=== PATIENT | female | born 1970 | race Caucasian/White ===

== ENCOUNTER → 2023-05-12 15:58 | Outpatient (REF) | payer BC, SELFPAY ==
[2023-05-15 19:12] LABS: Hematocrit 41.4 % (37.0-47.0); Hemoglobin 13.3 g/dL (12.0-16.0); Mean Corp Hgb Conc. 32.1 g/dL (33.0-37.0); Mean Corpuscular Hgb 29.3 pg (27.0-31.0); Mean Corpuscular Volume 91.2 fL (81.0-99.0); Mean Platelet Volume 10.2 fL (7.4-10.4); Platelet Count 416 10^3/uL (130-400); Red Blood Cell Count 4.54 10^6/uL (4.20-5.40); Red Cell Dist. Width 13.9 % (11.5-14.5); White Blood Cell Count 5.9 10^3/uL (4.8-10.8)
[2023-05-15 19:28] LABS: ALT (SGPT) 13 U/L (0-35); AST (SGOT) 20 U/L (14-36); Albumin 4.1 g/dl (3.5-5.0); Alkaline Phosphatase 57 U/L (38-126); Blood Urea Nitrogen 10 mg/dl (7-17); Carbon Dioxide 26 mmol/L (22-30); Glucose 74 mg/dl (70-99); HDL Cholesterol 77 mg/dl; LDL Cholesterol, Calculated 103 mg/dl; Total Bilirubin 0.8 mg/dl (0.2-1.3); Total Cholesterol 195 mg/dl (50-199); Total Protein 6.9 g/dl (6.3-8.2); Triglyceride 75 mg/dl (10-149); Very Low Density Lipoprotein 15 mg/dl (0-30); eGFR > 60.00
[2023-05-15 19:40] LABS: Chloride 104 mmol/L (98-107); Potassium 3.9 mmol/L (3.5-5.1); Sodium 134 mmol/L (135-145)
[2023-05-15 20:05] LABS: TSH Reflex To Free T4 1.63 uIU/ml (0.47-4.68)
== END ==
LOC: CLAB 15:58
PROVIDERS: ATTENDING PHYSICIAN Physician Assistant Medical
DX: Z00.00 Encounter for general adult medical examination without abnormal findings (principal); Z13.220 Encounter for screening for lipoid disorders
CPT/HCPCS: 36415; 80053; 80061; 84443; 85027

== ENCOUNTER → 2023-06-30 17:46 | Outpatient (REF) | payer BC, SELFPAY ==
[2023-06-30 18:33] LABS: Sodium 137 mmol/L (135-145)
== END ==
LOC: CLAB 17:46
PROVIDERS: ATTENDING PHYSICIAN Physician Assistant Medical
DX: R89.9 Unspecified abnormal finding in specimens from other organs, systems and tissues (principal)
CPT/HCPCS: 84295

== ENCOUNTER → 2023-07-05 10:36 | Outpatient (REF) | payer BC, SELFPAY ==
[2023-07-15 00:31] LABS: HPV, High Risk Not Detected; HPV, High Risk Source Cervical
== END ==
LOC: CPAP 10:36
PROVIDERS: ATTENDING PHYSICIAN Physician Assistant Medical
DX: Z01.419 Encounter for gynecological examination (general) (routine) without abnormal findings (principal)
CPT/HCPCS: 87624; G0123

== ENCOUNTER → 2023-10-23 12:41 | Outpatient (REF) | payer BC, SELFPAY | LOC: WDC 12:41 | PROVIDERS: ATTENDING PHYSICIAN Physician Assistant Medical | DX: Z12.31 Encounter for screening mammogram for malignant neoplasm of breast (principal) | CPT/HCPCS: 77063; 77067 ==

== ENCOUNTER → 2024-01-31 12:52 | Outpatient (REF) | payer BC, SELFPAY | LOC: WDC 12:52 | PROVIDERS: ATTENDING PHYSICIAN Physician Assistant Medical | DX: R92.2 Inconclusive mammogram (principal); R92.30 Dense breasts, unspecified | CPT/HCPCS: 76641 ==

== ENCOUNTER → 2024-05-28 15:27 | Outpatient (REF) | payer BC, SELFPAY ==
[2024-05-28 16:27] LABS: % Basophils 0.8 % (0-2); % Eosinophils 1.2 % (0-6); % Immature Granulocytes 0.3 % (0-0.5); % Lymphocytes 31.2 % (20.5-51.1); % Monocytes 5.2 % (1.7-9.3); % Neutrophils 61.3 % (42.2-75.2); Absolute Basophils 0.1 10^3/uL (0-0.2); Absolute Eosinophils 0.1 10^3/uL (0-0.7); Absolute Monocytes 0.3 10^3/uL (0.1-0.6); Hematocrit 44.2 % (37.0-47.0); Hemoglobin 14.2 g/dL (12.0-16.0); Mean Corp Hgb Conc. 32.1 g/dL (33.0-37.0); Mean Corpuscular Hgb 29.4 pg (27.0-31.0); Mean Corpuscular Volume 91.5 fL (81.0-99.0); Nucleated Red Blood Cells % 0 %; Platelet Count 389 10^3/uL (130-400); Red Blood Cell Count 4.83 10^6/uL (4.20-5.40); Red Cell Dist. Width 13.6 % (11.5-14.5); White Blood Cell Count 6.5 10^3/uL (4.8-10.8)
[2024-05-28 16:35] LABS: ALT (SGPT) 13 U/L (0-35); AST (SGOT) 20 U/L (14-36); Alkaline Phosphatase 64 U/L (38-126); Blood Urea Nitrogen 9 mg/dl (7-17); Carbon Dioxide 26 mmol/L (22-30); Chloride 102 mmol/L (98-107); Glucose 86 mg/dl (70-99); HDL Cholesterol 81 mg/dl; LDL Cholesterol, Calculated 133 mg/dl; Potassium 4.2 mmol/L (3.5-5.1); Sodium 139 mmol/L (135-145); Total Cholesterol 237 mg/dl (50-199); Total Protein 7.6 g/dl (6.3-8.2); Triglyceride 116 mg/dl (10-149); Very Low Density Lipoprotein 23 mg/dl (0-30); eGFR > 60.00
== END ==
LOC: CLAB 15:27
PROVIDERS: ATTENDING PHYSICIAN Physician Assistant Medical
DX: Z00.00 Encounter for general adult medical examination without abnormal findings (principal); Z13.220 Encounter for screening for lipoid disorders
CPT/HCPCS: 36415; 80053; 80061; 84443; 85025

== ENCOUNTER → 2024-10-23 12:31 | Outpatient (REF) | payer BC, SELFPAY | LOC: WDC 12:31 | PROVIDERS: ATTENDING PHYSICIAN Physician Assistant Medical | DX: Z12.31 Encounter for screening mammogram for malignant neoplasm of breast (principal) | CPT/HCPCS: 77063; 77067 ==

== ENCOUNTER → 2025-01-24 17:07 | Outpatient (REF) | payer BC, SELFPAY ==
[2025-01-24 17:56] LABS: Hematocrit 41.7 % (37.0-47.0); Hemoglobin 13.6 g/dL (12.0-16.0); Mean Corp Hgb Conc. 32.6 g/dL (33.0-37.0); Mean Corpuscular Volume 89.7 fL (81.0-99.0); Nucleated Red Blood Cells % 0 %; Platelet Count 346 10^3/uL (130-400); Red Cell Dist. Width 13.3 % (11.5-14.5)
[2025-01-24 19:00] LABS: ALT (SGPT) 14 U/L (0-35); AST (SGOT) 19 U/L (14-36); Albumin 4.7 g/dl (3.5-5.0); Alkaline Phosphatase 58 U/L (38-126); Blood Urea Nitrogen 9 mg/dl (7-17); Calcium 9.9 mg/dl (8.4-10.2); Carbon Dioxide 29 mmol/L (22-30); Glucose 80 mg/dl (70-99); Total Protein 7.7 g/dl (6.3-8.2); eGFR > 60.00
[2025-01-24 19:48] LABS: Chloride 101 mmol/L (98-107); Potassium 4.2 mmol/L (3.5-5.1); Sodium 136 mmol/L (135-145)
== END ==
LOC: CLAB 17:07
PROVIDERS: ATTENDING PHYSICIAN Physician Assistant Medical
DX: G44.209 Tension-type headache, unspecified, not intractable (principal)
CPT/HCPCS: 36415; 80053; 85025; 86618